=== PATIENT | female | born 1955 | race Asian ===

== ENCOUNTER 2018-03-04 15:23 | Emergency (ER) | payer OTHER ==
[~2018-03-04] VITALS: Ht 152.4 cm; Wt 80.7 kg
[~2018-03-04 15:23] MED LIST: METFORMIN HCL500 MG PO; PRILOSEC 20 MG20 MG PO; TESSALON PERLE100 MG PO; VENTOLIN HFA 1818 GM INH
[2018-03-04 15:24] VITALS: BP 133/63
[2018-03-04] MEDS ORDERED: COZAAR 50 MG TA50 M2 PO (15:26)
[2018-03-04] MEDS ORDERED: LIPITOR 20 MG T20 M1 PO (15:27)
[2018-03-04] MEDS ORDERED: NEURONTIN 300300 M1 PO (15:27)
[2018-03-04] MEDS ORDERED: MOBIC15 MG PO (15:59)
[2018-03-04] MEDS ORDERED: AUGMENTIN 875-1 EACH PO (15:59)
== END 2018-03-04 16:13 | disposition home or self-care (01) ==
LOC: ER 15:23
DX: H66.92 Otitis media, unspecified, left ear (principal); J01.90 Acute sinusitis, unspecified; H57.12 Ocular pain, left eye; H53.8 Other visual disturbances; I10 Essential (primary) hypertension; E11.9 Type 2 diabetes mellitus without complications; K21.9 Gastro-esophageal reflux disease without esophagitis; E78.5 Hyperlipidemia, unspecified; Z88.5 Allergy status to narcotic agent